=== PATIENT | female | born 1970 | race Caucasian/White ===

== ENCOUNTER → 2019-09-03 07:38 | Outpatient (CLI) | payer MEDICARE, MEDICAID | END | disposition home or self-care (01) | LOC: D.NM 07:38 | PROVIDERS: ATTEND Nurse Practitioner Family | DX: K80.80 Other cholelithiasis without obstruction (principal) ==

== ENCOUNTER 2020-07-04 05:08 | Day surgery (SDC) | payer MEDICARE, MEDICAID ==
[~2020-07-04] VITALS: Ht 157.5 cm; Wt 60.5 kg
--- NOTE | ~2020-07-04 | OP ---
PATIENT NAME: JANINE ALTAMIRANO MEDICAL RECORD: [id number] :74 LOCATION:D.OPS ADMISSION DATE: SURGEON: JARVIS SMITH MD DATE OF OPERATION: 07/04/2020 PREOPERATIVE DIAGNOSES: 1. Abdominal pain. 2. Asthma. 3. Anxiety. POSTOPERATIVE DIAGNOSES: 1. Abdominal pain. 2. Asthma. 3. Anxiety. PROCEDURE: EGD with biopsy. SURGEON: Jarvis Smith MD REPORT OF PROCEDURE: An Olympus endoscope was advanced through the mouth and esophagus. We passed through the stomach. While passing through, we noted there was a large amount of only partially digested food present near the fundus. We passed through this and through the pylorus into the small bowel. We got to the second portion of the duodenum and there was no sign of any masses, lesions or ulceration. There were some inflammatory changes to the tissues. As we pulled back, a random biopsy was taken of the antrum of the stomach. There were some inflammatory changes to the antrum, but again no masses, lesions or ulcerations were seen throughout the stomach lumen. Retroflexed view looked to be a small, approximately 1 cm hiatal hernia. The patient had a large amount of food content present near the fundus of the stomach. This was suctioned and irrigated out until we could visualize all of the patient's gastric lumen. We then pulled the scope back and can see that the GE junction was at 33 cm from the teeth. A random biopsy was taken on the distal third of the esophagus. There were no signs of inflammatory changes on the distal esophagus. We then removed the insufflation and the scope was removed. As we were pulling the scope back, we did not see any evidence of any strictures in the esophagus. COMPLICATIONS: None. CONDITION: Stable. ANESTHESIA: TIVA. BLOOD LOSS: Minimal. TRANSINT:[id number] Voice Confirmation ID: [id number] DOCUMENT ID: [id number] OPERATIVE REPORT [id number] ADARHSJANINE Eri JARVIS SMITH MD CC: JAMAAL RIZVI [id number] DICTATION DATE: 07/04/20807 CLAIM ADMINISTRATOR: 07/04/201811 [facility] 07/04/20 [facility] [address] [place] [address]
[2020-07-04 05:48] LABS: BASOPHILS 0.3 % (0-2); EOSINOPHILS 4.6 % (0-7); HEMATOCRIT 42.7 % (36.0-48.0); HEMOGLOBIN 13.7 g/dL (12-16); IMMATURE GRANULOCYTES 0.3 % (0-5); LYMPHOCYTES 31.9 % (15-50); MCH 28.6 pg (26.0-34.0); MCHC 32.1 g/dL (31.0-37.0); MCV 89.1 fL (80.0-100.0); MEAN PLATELET VOLUME 9.1 fL (7.4-10.4); MONOCYTES 6.9 % (2-11); PLATELET COUNT 361 10x3/uL (130-400); RBC 4.79 10x6/uL (4.00-5.40); WBC 10.9 10x3/uL (4.8-10.8)
[2020-07-04 06:09] LABS: CALC OSMOLALITY 272 mosm/kg (275-300); CARBON DIOXIDE 27.7 mmol/L (21.0-32.0); CHLORIDE - SERUM 103 mmol/L (98-107); CREATININE - SERUM 0.8 mg/dL (0.6-1.3); GLUCOSE 107 mg/dL (74-106); POTASSIUM - SERUM 3.7 mmol/L (3.5-5.1); SODIUM 137 mmol/L (136-145); UREA NITROGEN 11 mg/dL (7-18); eGFR NON AFRICAN AMERICAN 81 mL/min (90-120)
[2020-07-04] MEDS ORDERED: ZYPREXA20 MG PO (06:31)
[2020-07-04] MEDS ORDERED: ELAVIL10 MG PO (06:31)
[2020-07-04] MEDS ORDERED: PROZAC20 MG PO (06:32)
[2020-07-04] MEDS ORDERED: BUSPAR 15 MG TA15 MG PO (06:33)
[2020-07-04] MEDS ORDERED: SEROQUEL50 MG PO (06:33)
[2020-07-04] MEDS ORDERED: PEPCID40 MG PO (06:34)
[2020-07-04] MEDS ORDERED: ULTRAM50 MG PO (06:34)
[2020-07-04] MEDS ORDERED: BENADRYL25 MG PO (06:35)
[2020-07-04] MEDS ORDERED: IMITREX50 MG PO (06:36)
[2020-07-04] MEDS ORDERED: NYSTATIN1 PWD TOPICAL (06:37)
[2020-07-04] MEDS ORDERED: MIRALAX17 GM PO (06:38)
--- NOTE | 2020-07-04 06:55 | NUR ---
DR BIRCH NOTIFIED OF PT's BEHAVIOR AND ASSESSMENT, PT IS A LOW RISK PER DR BIRCH. DR BIRCH STATED TO GIVE RESOURCES TO PT AT TIME OF DISCHARGE. NO FURTHER ORDERS AT THIS TIME, RESOURCES REVIEWED WITH PT AND SHE VERBALIZED UNDERSTANDING.
[2020-07-04 07:09] VITALS: BP 127/80; Ht 157.5 cm; Wt 60.5 kg
--- NOTE | 2020-07-04 11:29 | NUR ---
0918 DRESSED, AWAKE & ALERT. GIVEN DISCHARGE INFORMATION INCLUDING, MED REC, RTC APPT., & SHEET LISTING NSAIDS TO AVOID. PT VOICED UNDERSTANDING. TO PRIVATE CAR PER WHEELCHAIR BY STAFF. HOME WITH ALYSSA. Shaw NORMAN R.N.
== END 2020-07-04 09:18 | disposition home or self-care (01) ==
LOC: D.OPS 05:08
PROVIDERS: ATTEND Surgery
DX: R10.9 Unspecified abdominal pain (principal); J45.909 Unspecified asthma, uncomplicated; F41.9 Anxiety disorder, unspecified; Z72.0 Tobacco use

== ENCOUNTER 2021-04-10 11:00 | Outpatient (CLI) | payer MEDICARE, MEDICAID ==
[2020-07-04 07:09] VITALS: BMI 24.4
[~2021-04-10 11:00] MED LIST: BENADRYL25 MG PO; BUSPAR 15 MG TA15 MG PO; ELAVIL10 MG PO; IMITREX50 MG PO; MIRALAX17 GM PO; NYSTATIN1 PWD TOPICAL; PEPCID40 MG PO; PROZAC20 MG PO; SEROQUEL50 MG PO; ULTRAM50 MG PO; ZYPREXA20 MG PO
== END 2021-04-10 23:59 | disposition home or self-care (01) ==
LOC: D.MAMMO 11:00
PROVIDERS: ATTEND Family Medicine
DX: Z12.31 Encounter for screening mammogram for malignant neoplasm of breast (principal)